=== PATIENT | female | born 1975 | race Caucasian/White ===

== ENCOUNTER → 2016-10-05 | Outpatient (CLI) | payer OTHER ==
[~2016-10-05] MED LIST: CEFD300C37 PO; OMEG500C3; PREN1TAB60
== END | disposition home or self-care (01) ==
LOC: CFH 12:34
PROVIDERS: ATTEND Physician Assistant
DX: N64.4 Mastodynia (principal); R93.8 Abnormal findings on diagnostic imaging of other specified body structures; E55.9 Vitamin D deficiency, unspecified; K50.90 Crohn's disease, unspecified, without complications; Z87.898 Personal history of other specified conditions

== ENCOUNTER → 2018-06-23 | Outpatient (CLI) | payer OTHER | END | disposition home or self-care (01) | LOC: CFH 15:07 | PROVIDERS: ATTEND Nurse Practitioner Primary Care | DX: Z12.31 Encounter for screening mammogram for malignant neoplasm of breast (principal) | CPT/HCPCS: 77063; 77067 ==